=== PATIENT | male | born 1980 | race Caucasian/White ===

== ENCOUNTER 2018-02-15 10:24 | Emergency (ER) | payer SELFPAY ==
[2018-02-15 10:56] VITALS: BP 92/59
--- NOTE | 2018-02-15 11:35 | UC ---
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 He states that the detergent and sanitizers irritate his skin. They makes it turn a little red. Recently, he's been working a great deal of over time and as a result his skin has become much more red and irritated from the detergent and trapper animal. He notes that both of the back of his hands and forearms have become very red and burning and he has some blistering as well. He denies any associated joint pain, fever and chills. He denies any history of MRSA. He states that he has required steroids in the past when his skin has become irritated like this. Patient states he self treated with some burn cream which only made it burn more. - History of Current Complaint Chief Complaint: [employer] Time Seen by Provider: 02/15/18 11:27 Stated Complaint: CHEMICAL BURN BILATERAL ARM Hx Obtained From: Patient Onset/Duration: Gradual Onset Timing: Constant Pain Intensity: 8 Alleviating Factor(s): Nothing Associated Signs & Symptoms: Positive: Rash. Negative: Fever, Chills, Joint Swelling - Allergy/Home Medications Allergies/Adverse Reactions: Allergies Allergy/AdvReac Type Severity Reaction Status Date / Time azithromycin Allergy Unknown Nausea Verified 02/15/18 10:45 Home Medications: Home Medications Albuterol HFA INHALER* [Ventolin HFA Inhaler*] 2 puff INH Q4H PRN 02/15/18 [ History Confirmed 02/15/18] Ibuprofen TAB* [Advil TAB*] 800 mg PO Q6H PRN 02/15/18 [History Confirmed ] Review of Systems Constitutional: Negative Skin: Rash Eyes: Negative ENT: Negative Respiratory: Negative Cardiovascular: Negative Gastrointestinal: Negative Genitourinary: Negative Motor: Negative Neurovascular: Negative Musculoskeletal: Negative Neurological: Negative Psychological: Negative Is Patient Immunocompromised?: No All Other Systems Reviewed And Are Negative: Yes PMH/Surg Hx/FS Hx/Imm Hx Respiratory History: Asthma - Surgical History Surgical History: Yes Surgery Procedure, Year, and Place: [facility] - Family History Known Family History: Positive: None - Social History Occupation: Employed Full-time Lives: With Family Alcohol Use: Occasionally Substance Use Type: None Smoking Status (MU): Light Every Day Tobacco Smoker Type: Cigarettes Amount Used/How Often: 1/2 PPD - Immunization History Vaccination Up to Date: Yes Physical Exam Triage Information Reviewed: Yes Appearance: Well-Appearing Vital Signs: Initial Vital Signs Temp 97.7 F 02/15/18 10:47 Pulse 66 02/15/18 10:47 Resp 18 02/15/18 10:47 BP 92/59 02/15/18 10:47 Pulse Ox 99 02/15/18 10:47 Vital Signs Reviewed: Yes Eyes: Positive: Conjunctiva Clear ENT: Positive: Normal ENT inspection Neck: Positive: Supple, Nontender, No Lymphadenopathy Respiratory: Positive: Lungs clear, Normal breath sounds Cardiovascular: Positive: RRR, No Murmur Abdomen Description: Positive: Nontender, No Organomegaly, Soft Bowel Sounds: Positive: Present Musculoskeletal: Positive: ROM Intact Neurological: Positive: Alert Psychological: Positive: Age Appropriate Behavior Skin Exam: Normal Skin: Positive: rashes - Inspection of both upper extremities reveals erythema from the forearms down to the backs of the hands with some mild breaks in the skin on the backs of the hands. There is some mild blistering to either side of each forearm. I noted some streaking that extends from the proximal forearms up to just below each axilla as well. There is no epitrochlear or axillary adenopathy. There is no joint swelling. Both upper extremities have full sensorivascular motor function. The pattern of this rash does fit the pattern of for the patient would be submerging his hands and forearms in dishwater. Course/Dx - Course Course Of Treatment: This patient is nontoxic. There is no concern for septic joint. His exam is consistent with a chemical dermatitis to both forearms and hands as well as a secondary infection causing lymphangitis. I will remove patient from work for the next few days. he's been advised that he must wear gloves when he returns to work to avoid recurrent exposure. I think the benefit of a very short course of steroids outweighs the risk of immune suppression. Given the degree of involvement, and going to use a by mouth steroid consisting of prednisone 40 mg once a day for 3 days. I'm also going to treat him with Keflex 500 mg 3 times a day for a week. Need for close follow -up and recheck stressed time of visit. Patient states that he is a patient of the [facility] thus he is to call them Friday morning to be seen either this Friday or Friday. He's been advised if they're unable to see him that he should either return here or in the event that he has any worsening whatsoever he is to go directly to the emergency room. - Diagnoses Provider Diagnoses: Chemical dermatitis both upper extremities. Lymphangitis both upper extremities. Discharge - Sign-Out/Discharge Documenting (check all that apply): Patient Departure All imaging exams completed and their final reports reviewed: No Studies - Discharge Plan Condition: Stable Disposition: HOME Prescriptions: Cephalexin CAP* [Keflex CAP*] 500 mg PO TID 7 Days #21 cap predniSONE [Prednisone 20 MG TAB] 40 mg PO DAILY 3 Days #6 tablet Patient Education Materials: Contact Dermatitis (ED), Lymphangitis (ED) Forms: *Work Release Referrals: DICK Dejesus [Medical Doctor] - 2 Days Additional Instructions: GO TO THE ER IMMEDIATELY FOR ANY TYPE OF WORSENING. UPON RETURN TO WORK, YOU MUST WEAR GLOVES TO AVOID CONTACT WITH [facility] - Billing Disposition and Condition Condition: STABLE Disposition: Home
== END 2018-02-15 12:25 | disposition home or self-care (01) ==
LOC: UCCORT 10:24
DX: L24.0 Irritant contact dermatitis due to detergents (principal); I89.1 Lymphangitis; J45.909 Unspecified asthma, uncomplicated; F17.210 Nicotine dependence, cigarettes, uncomplicated; Z88.1 Allergy status to other antibiotic agents
CPT/HCPCS: 99202; G0463